=== PATIENT | male | born 1990 | race Caucasian/White ===

== ENCOUNTER 2018-09-22 03:14 | Emergency (ER) | payer SELFPAY ==
[~2018-09-22] VITALS: Ht 185.4 cm; Wt 68.4 kg
[2018-09-22 03:16] VITALS: BP 123/76
--- NOTE | 2018-09-22 03:32 | NUR ---
first contact with pt. pt punched door with right hand. pt c/o right hand pain. Pt able to move fingers. radial pulse +2 bilateraly. pt has abrasion to knuckles, but not bleeding. pt's aox4. resps even and unlabored. pa at bedside to assess at this time.
--- NOTE | 2018-09-22 03:33 | NUR ---
pt provided ice pack for pain.
--- NOTE | 2018-09-22 03:38 | NUR ---
pt back to room from xray now.
[2018-09-22] MEDS ORDERED: LIDOCAINE-MPF 1%, 5ML ONE (04:02)
--- NOTE | 2018-09-22 04:18 | NUR ---
pt applied splint by edt. pt tolerated well.
--- NOTE | 2018-09-22 04:38 | NUR ---
PT GIVEN DC INSTRUCTIONS. PT AMB TO DC WITH STEADY GAIT. PT'S AOX4. RESPS EVEN AND UNLABORED. NO ACUTE DISTRESS AT DC.
== END 2018-09-22 04:39 | disposition home or self-care (01) ==
LOC: ED 04:30
DX: S62.336A Displaced fracture of neck of fifth metacarpal bone, right hand, initial encounter for closed fracture (principal); X58.XXXA Exposure to other specified factors, initial encounter; Y93.89 Activity, other specified; Y92.009 Unspecified place in unspecified non-institutional (private) residence as the place of occurrence of the external cause; Y99.8 Other external cause status
CPT/HCPCS: 26605; 99284